=== PATIENT | male | born 1950 | race Caucasian/White ===

== ENCOUNTER 2021-01-18 20:21 | Emergency (ER) | payer MEDICARE ==
[~2021-01-18] VITALS: Ht 180.3 cm; Wt 97.5 kg
[~2021-01-18 20:21] MED LIST: COREG12.5 MG PO; COUMADIN5 MG PO; GARLIC1 EAC1 PO; LASIX40 MG PO; LOSARTAN POTASS25 MG PO; LOVENOX60 MG/0.6 SC; MACUVITE WITH1 EACH PO; MULTI-VITAMIN1 EACH PO
[2021-01-18] MEDS ORDERED: DIPHENHYDRAMINE HCL INJ 50 MG/ML VIAL IV STA (20:31)
[2021-01-18] MEDS ORDERED: METHYLPREDNISOLONE SOD SUCC 125 MG/2ML VIAL IV STA (20:31)
[2021-01-18] MEDS ORDERED: ASPIRIN 81 MG CHEW TAB PO ONE (20:45)
[2021-01-18 21:19] LABS: BASOPHILS # (AUTO) 0.1 (0.0-0.1); BASOPHILS % 0.8 % (0.0-1.0); EOSINOPHILS % 0.2 % (0.0-6.0); HEMATOCRIT 35.4 % (38.2-49.6); HEMOGLOBIN 12.1 g/dL (14.0-18.0); LYMPHOCYTES # (AUTO) 0.3 (1.0-3.2); LYMPHOCYTES % 5.3 % (18.0-39.1); MEAN CORPUSCULAR HEMOGLOBIN 33.2 pg (28-32); MEAN CORPUSCULAR HGB CONC 34.2 g/dL (31-35); MEAN CORPUSCULAR VOLUME 97.3 fL (81-99); MONOCYTES # (AUTO) 0.5 (0.2-0.8); MONOCYTES % 8.2 % (4.4-11.3); NEUTROPHILS # (AUTO) 5.2 (2.1-6.9); NEUTROPHILS % 84.7 % (38.7-80.0); PLATELET COUNT 225 x10e3/uL (140-360); RED BLOOD COUNT 3.64 x10e6/uL (4.3-5.7); RED CELL DISTRIBUTION WIDTH 14.6 % (11.7-14.4)
[2021-01-18 21:31] LABS: INR 2.94; PROTHROMBIN TIME 31.4 seconds (11.9-14.5)
[2021-01-18 21:38] LABS: ALANINE AMINOTRANSFERASE 20 IU/L (0-55); ALBUMIN 3.2 g/dL (3.5-5.0); ALBUMIN/GLOBULIN RATIO 1.2 (0.8-2.0); ALKALINE PHOSPHATASE 107 IU/L (40-150); ANION GAP 13.3 mmol/L (8-16); BLOOD UREA NITROGEN 26 mg/dL (7-26); BUN/CREATININE RATIO 25 (6-25); CALCIUM 8.1 mg/dL (8.4-10.2); CARBON DIOXIDE 24 mmol/L (22-29); CHLORIDE 94 mmol/L (98-107); CREATININE, SERUM 1.05 mg/dL (0.72-1.25); EST GLOMERULAR FILTRATION RATE > 60 ML/MIN (60-); GLUCOSE 99 mg/dL (74-118); POTASSIUM 4.3 mmol/L (3.5-5.1); SODIUM 127 mmol/L (136-145)
[2021-01-18 21:41] LABS: CREATINE KINASE MB 1.4 ng/mL (0-5.0)
[2021-01-18] MEDS ORDERED: PREDNISONE20 MG PO (22:25)
[2021-01-18] MEDS ORDERED: BUMETANIDE1 MG PO (22:25)
[2021-01-18] MEDS ORDERED: FUROSEMIDE INJ 10 MG/ML 4 ML VIAL IV ONE (22:30)
[2021-01-18 22:59] VITALS: BP 125/98
== END 2021-01-18 23:00 | disposition home or self-care (01) ==
LOC: ER 20:31
DX: L30.9 Dermatitis, unspecified (principal); R60.9 Edema, unspecified; E87.1 Hypo-osmolality and hyponatremia; I50.9 Heart failure, unspecified
CPT/HCPCS: 36415; 71045; 80053; 82550; 82553; 83880; 84484; 85025; 85610; 99283; J1200; J1940; J2930

== ENCOUNTER 2021-02-24 08:25 | Inpatient (IN) | payer MEDICARE ==
[~2021-02-24] VITALS: Ht 180.3 cm; Wt 109.8 kg
[~2021-02-24 08:25] MED LIST changes: +BUMETANIDE1 MG PO; +PREDNISONE20 MG PO
[2021-02-24 09:03] LABS: BASOPHILS # (AUTO) 0.1 (0.0-0.1); BASOPHILS % 0.4 % (0.0-1.0); EOSINOPHILS % 0.3 % (0.0-6.0); HEMATOCRIT 33.3 % (38.2-49.6); HEMOGLOBIN 11.4 g/dL (14.0-18.0); LYMPHOCYTES # (AUTO) 0.6 (1.0-3.2); MEAN CORPUSCULAR HEMOGLOBIN 33.6 pg (28-32); MEAN CORPUSCULAR HGB CONC 34.2 g/dL (31-35); MEAN CORPUSCULAR VOLUME 98.2 fL (81-99); MONOCYTES # (AUTO) 1.1 (0.2-0.8); MONOCYTES % 8.9 % (4.4-11.3); NEUTROPHILS # (AUTO) 9.9 (2.1-6.9); NEUTROPHILS % 84.1 % (38.7-80.0); PLATELET COUNT 306 x10e3/uL (140-360); RED BLOOD COUNT 3.39 x10e6/uL (4.3-5.7); RED CELL DISTRIBUTION WIDTH 13.7 % (11.7-14.4)
[2021-02-24 09:24] LABS: ALANINE AMINOTRANSFERASE 21 IU/L (0-55); ALBUMIN 2.6 g/dL (3.5-5.0); ALBUMIN/GLOBULIN RATIO 0.7 (0.8-2.0); ALKALINE PHOSPHATASE 107 IU/L (40-150); ANION GAP 14.3 mmol/L (8-16); BLOOD UREA NITROGEN 21 mg/dL (7-26); BUN/CREATININE RATIO 26 (6-25); CALCIUM 8.9 mg/dL (8.4-10.2); CARBON DIOXIDE 27 mmol/L (22-29); CHLORIDE 96 mmol/L (98-107); EST GLOMERULAR FILTRATION RATE > 60 ML/MIN (60-); GLUCOSE 105 mg/dL (74-118); POTASSIUM 4.3 mmol/L (3.5-5.1); SODIUM 133 mmol/L (136-145)
[2021-02-24] MEDS ORDERED: FUROSEMIDE INJ 10 MG/ML 4 ML VIAL IV NR (09:45)
[2021-02-24] MEDS ORDERED: CEFTRIAXONE 1 GM VIAL IV SCH (09:45)
[2021-02-24] MEDS ORDERED: AZITHROMYCIN 500MG/NS 250 ML 250 ML IV NR (10:00)
[2021-02-24] MEDS: CEFTRIAXONE 1 GM in SODIUM CHLORIDE 0.9% 50ML 50 ML IV SCH ×2 (10:13→20:56)
[2021-02-24 11:00] VITALS: BP 119/84
[2021-02-24 11:38] VITALS: BP 119/84
[2021-02-24] MEDS ORDERED: PLAQUENIL200 MG PO (11:45)
[2021-02-24] MEDS ORDERED: METOLAZONE5 MG PO (11:45)
[2021-02-24] MEDS ORDERED: POTASSIUM CHLO10 ME1 PO (11:50)
[2021-02-24] MEDS ORDERED: POTASSIUM600 MG (11:50)
[2021-02-24] MEDS ORDERED: ENOXAPARIN SOD INJ 60 MG/0.6 ML SYR SC SCH (14:00)
[2021-02-24] MEDS ORDERED: ACETAMINOPHEN 325 MG TAB PO PRN (14:00)
[2021-02-24] MEDS ORDERED: GUAIFENESIN/DEXTROMETHORPHAN LIQD 5 ML UDC NG PRN (14:00)
[2021-02-24] MEDS ORDERED: DOCUSATE SODIUM 100 MG CAP PO PRN (14:00)
[2021-02-24] MEDS ORDERED: ZOLPIDEM TARTRATE 5 MG TAB PO PRN (14:00)
[2021-02-24] MEDS ORDERED: ENOXAPARIN INJ 80 MG/0.8 ML SYR SC SCH (14:15)
[2021-02-24 15:37] LABS: INR 6.22; PROTHROMBIN TIME 55.7 seconds (11.9-14.5)
[2021-02-24 16:03] VITALS: BP 121/79
[2021-02-24] MEDS ORDERED: PHYTONADIONE 1 MG/0.5 ML AMP PO ONE (16:30)
[2021-02-24] MEDS ORDERED: WARFARIN SOD 5 MG TAB PO SCH (17:00)
[2021-02-24] MEDS: BENZONATATE 100 MG CAP PO SCH ×2 (17:02→20:56)
[2021-02-24] MEDS: CARVEDILOL 12.5 MG TAB PO SCH (17:02)
[2021-02-24] MEDS: FUROSEMIDE INJ 10 MG/ML 2 ML VIAL IV SCH (17:56)
[2021-02-24 18:30] LABS: CLARITY,URINE CLEAR (CLEAR); COLOR,URINE YELLOW (YELLOW); KETONES,URINE NEGATIVE (NEGATIVE); LEUKOCYTE ESTERASE ,URINE NEGATIVE (NEGATIVE); MUCUS,URINE FEW (RARE); NITRITE,URINE NEGATIVE (NEGATIVE); PROTEIN,URINE DIPSTICK NEGATIVE (NEGATIVE); URINE UROBILINOGEN 0.2 mg/dL (0.2 - 1); WBC,URINE (MAN) 0-5 /HPF (0-5)
[2021-02-24 21:07] VITALS: BP 102/70
[2021-02-24] MEDS ORDERED: SODIUM CHLORIDE 0.9% 250ML 250 ML ONE (21:08)
[2021-02-24 21:50] VITALS: BP 102/70
[2021-02-25] VITALS (8 sets, daily range): BP systolic 102–124; BP diastolic 73–98
[2021-02-25 04:47] LABS: BASOPHILS # (AUTO) 0.1 (0.0-0.1); BASOPHILS % 0.5 % (0.0-1.0); EOSINOPHILS # (AUTO) 0.1 (0.0-0.4); EOSINOPHILS % 0.7 % (0.0-6.0); HEMATOCRIT 32.2 % (38.2-49.6); HEMOGLOBIN 10.9 g/dL (14.0-18.0); LYMPHOCYTES # (AUTO) 0.8 (1.0-3.2); LYMPHOCYTES % 7.4 % (18.0-39.1); MEAN CORPUSCULAR HGB CONC 33.9 g/dL (31-35); MEAN CORPUSCULAR VOLUME 97.6 fL (81-99); MONOCYTES # (AUTO) 0.8 (0.2-0.8); MONOCYTES % 7.4 % (4.4-11.3); NEUTROPHILS # (AUTO) 8.8 (2.1-6.9); NEUTROPHILS % 82.5 % (38.7-80.0); PLATELET COUNT 282 x10e3/uL (140-360); RED CELL DISTRIBUTION WIDTH 13.6 % (11.7-14.4)
[2021-02-25 04:58] LABS: INR 2.42; PROTHROMBIN TIME 27.1 seconds (11.9-14.5)
[2021-02-25 05:08] LABS: ANION GAP 12.6 mmol/L (8-16); BLOOD UREA NITROGEN 24 mg/dL (7-26); BUN/CREATININE RATIO 32 (6-25); CALCIUM 8.4 mg/dL (8.4-10.2); CARBON DIOXIDE 31 mmol/L (22-29); CHLORIDE 94 mmol/L (98-107); CREATININE, SERUM 0.74 mg/dL (0.72-1.25); EST GLOMERULAR FILTRATION RATE > 60 ML/MIN (60-); GLUCOSE 110 mg/dL (74-118); POTASSIUM 3.6 mmol/L (3.5-5.1); SODIUM 134 mmol/L (136-145)
[2021-02-25] MEDS: FUROSEMIDE INJ 10 MG/ML 2 ML VIAL IV SCH ×2 (06:04→18:10)
[2021-02-25] MEDS: CEFTRIAXONE 1 GM in SODIUM CHLORIDE 0.9% 50ML 50 ML IV SCH ×2 (09:52→21:10)
[2021-02-25] MEDS: CARVEDILOL 12.5 MG TAB PO SCH ×2 (09:53→17:30)
[2021-02-25] MEDS: BENZONATATE 100 MG CAP PO SCH ×3 (09:53→21:10)
[2021-02-25] MEDS: LOSARTAN POTASSIUM 25 MG TAB PO SCH (09:53)
[2021-02-25] MEDS: HYDROXYCHLOROQUINE SULFATE 200 MG TAB PO SCH (09:53)
[2021-02-25] MEDS: POTASSIUM CHLORIDE 10MEQ EA PO SCH (09:53)
[2021-02-25] MEDS: PANTOPRAZOLE SOD 40 MG TABEC PO SCH (09:53)
[2021-02-25] MEDS ORDERED: DIGOXIN 0.25 MG TAB PO ONE (11:15)
[2021-02-25] MEDS: WARFARIN SOD 5 MG TAB PO SCH (17:30)
[2021-02-26] VITALS (8 sets, daily range): BP systolic 97–124; BP diastolic 63–82
[2021-02-26 04:47] LABS: BASOPHILS # (AUTO) 0.1 (0.0-0.1); BASOPHILS % 0.5 % (0.0-1.0); EOSINOPHILS # (AUTO) 0.1 (0.0-0.4); EOSINOPHILS % 0.7 % (0.0-6.0); HEMATOCRIT 32.2 % (38.2-49.6); HEMOGLOBIN 11.1 g/dL (14.0-18.0); LYMPHOCYTES # (AUTO) 0.7 (1.0-3.2); LYMPHOCYTES % 6.5 % (18.0-39.1); MEAN CORPUSCULAR HEMOGLOBIN 34.3 pg (28-32); MEAN CORPUSCULAR HGB CONC 34.5 g/dL (31-35); MEAN CORPUSCULAR VOLUME 99.4 fL (81-99); MONOCYTES # (AUTO) 0.9 (0.2-0.8); MONOCYTES % 7.9 % (4.4-11.3); NEUTROPHILS # (AUTO) 8.9 (2.1-6.9); NEUTROPHILS % 82.8 % (38.7-80.0); PLATELET COUNT 283 x10e3/uL (140-360); RED BLOOD COUNT 3.24 x10e6/uL (4.3-5.7); RED CELL DISTRIBUTION WIDTH 13.5 % (11.7-14.4)
[2021-02-26 05:02] LABS: INR 1.44; PROTHROMBIN TIME 18.2 seconds (11.9-14.5)
[2021-02-26 05:12] LABS: ALANINE AMINOTRANSFERASE 18 IU/L (0-55); ALBUMIN 2.3 g/dL (3.5-5.0); ALBUMIN/GLOBULIN RATIO 0.7 (0.8-2.0); ALKALINE PHOSPHATASE 99 IU/L (40-150); ANION GAP 14.6 mmol/L (8-16); BLOOD UREA NITROGEN 24 mg/dL (7-26); BUN/CREATININE RATIO 32 (6-25); CALCIUM 8.3 mg/dL (8.4-10.2); CARBON DIOXIDE 31 mmol/L (22-29); CHLORIDE 91 mmol/L (98-107); CHOL/HDL RATIO 2.5 (3.9-4.7); CHOLESTEROL 114 MD/DL (0-199); CREATININE, SERUM 0.75 mg/dL (0.72-1.25); EST GLOMERULAR FILTRATION RATE > 60 ML/MIN (60-); GLUCOSE 113 mg/dL (74-118); HDL CHOLESTEROL 45 MG/DL (40-60); LDL CHOLESTEROL 59 MG/DL (60-130); POTASSIUM 3.6 mmol/L (3.5-5.1); SODIUM 133 mmol/L (136-145); TRIGLYCERIDES 50 MG/DL (0-149)
[2021-02-26 05:36] LABS: THYROID STIMULATING HORMONE 0.742 uIU/mL (0.350-4.940)
[2021-02-26] MEDS: FUROSEMIDE INJ 10 MG/ML 2 ML VIAL IV SCH (06:05)
[2021-02-26] MEDS: POTASSIUM CHLORIDE 10MEQ EA PO SCH (09:00)
[2021-02-26] MEDS: DIGOXIN 0.125 MG TAB PO SCH (09:00)
[2021-02-26] MEDS: CARVEDILOL 12.5 MG TAB PO SCH ×2 (09:00→17:01)
[2021-02-26] MEDS: LOSARTAN POTASSIUM 25 MG TAB PO SCH (09:00)
[2021-02-26 10:02] LABS: INR 1.45; PROTHROMBIN TIME 18.3 seconds (11.9-14.5)
[2021-02-26] MEDS: BENZONATATE 100 MG CAP PO SCH ×3 (10:28→21:25)
[2021-02-26] MEDS: PANTOPRAZOLE SOD 40 MG TABEC PO SCH (10:28)
[2021-02-26] MEDS: HYDROXYCHLOROQUINE SULFATE 200 MG TAB PO SCH (10:29)
[2021-02-26] MEDS: CEFTRIAXONE 1 GM in SODIUM CHLORIDE 0.9% 50ML 50 ML IV SCH ×2 (10:30→21:25)
[2021-02-26] MEDS ORDERED: FUROSEMIDE INJ 10 MG/ML 4 ML VIAL IV ONE (11:15)
[2021-02-26] MEDS ORDERED: POTASSIUM CHLORIDE 20 MEQ TAB CR PO ONE (11:15)
[2021-02-26] MEDS: WARFARIN SOD 5 MG TAB PO SCH (17:01)
[2021-02-26] MEDS: FUROSEMIDE INJ 10 MG/ML 4 ML VIAL IV SCH (17:01)
[2021-02-27] VITALS: BP 124/86
[2021-02-27 04:00] VITALS: BP 118/79
[2021-02-27 05:04] LABS: INR 1.8; PROTHROMBIN TIME 21.6 seconds (11.9-14.5)
[2021-02-27 05:12] LABS: ALANINE AMINOTRANSFERASE 18 IU/L (0-55); ALBUMIN 2.3 g/dL (3.5-5.0); ALBUMIN/GLOBULIN RATIO 0.7 (0.8-2.0); ALKALINE PHOSPHATASE 104 IU/L (40-150); ANION GAP 13.4 mmol/L (8-16); BLOOD UREA NITROGEN 24 mg/dL (7-26); BUN/CREATININE RATIO 31 (6-25); CARBON DIOXIDE 33 mmol/L (22-29); CHLORIDE 92 mmol/L (98-107); CREATININE, SERUM 0.78 mg/dL (0.72-1.25); EST GLOMERULAR FILTRATION RATE > 60 ML/MIN (60-); GLUCOSE 115 mg/dL (74-118); POTASSIUM 3.4 mmol/L (3.5-5.1); SODIUM 135 mmol/L (136-145)
[2021-02-27] MEDS ORDERED: LASIX10 MG/ML PO (07:40)
[2021-02-27] MEDS ORDERED: KEFLEX125 MG/5 M PO (07:40)
[2021-02-27] MEDS ORDERED: TESSALON PERLE100 MG PO (07:40)
[2021-02-27] MEDS ORDERED: Warfarin Sod PO (07:40)
[2021-02-27] MEDS ORDERED: DIGOXIN125 MCG PO (07:40)
[2021-02-27 07:55] VITALS: BP 111/79
[2021-02-27] MEDS ORDERED: POTASSIUM CHLORIDE 20 MEQ TAB CR PO ONE (08:15)
[2021-02-27] MEDS: POTASSIUM CHLORIDE 10MEQ EA PO SCH (08:46)
[2021-02-27] MEDS: CEFTRIAXONE 1 GM in SODIUM CHLORIDE 0.9% 50ML 50 ML IV SCH (08:46)
[2021-02-27] MEDS: BENZONATATE 100 MG CAP PO SCH (08:46)
[2021-02-27] MEDS: PANTOPRAZOLE SOD 40 MG TABEC PO SCH (08:46)
[2021-02-27] MEDS: CARVEDILOL 12.5 MG TAB PO SCH (08:46)
[2021-02-27] MEDS: HYDROXYCHLOROQUINE SULFATE 200 MG TAB PO SCH (08:46)
[2021-02-27] MEDS: FUROSEMIDE INJ 10 MG/ML 4 ML VIAL IV SCH (08:46)
[2021-02-27 08:47] VITALS: BP 111/79
[2021-02-27] MEDS: DIGOXIN 0.125 MG TAB PO SCH (08:47)
[2021-02-27] MEDS: LOSARTAN POTASSIUM 25 MG TAB PO SCH (08:47)
[2021-02-27 10:42] LABS: INR 1.8; PROTHROMBIN TIME 21.6 seconds (11.9-14.5)
== END 2021-02-27 11:52 | disposition home or self-care (01) | DRG 291 ==
LOC: ER 09:06 → ERHOLD 09:47 → MED/SURG3 11:00 → OBSVTOIN 14:00
PROVIDERS: ADMIT Internal Medicine; ATTEND Internal Medicine
DX: I11.0 Hypertensive heart disease with heart failure (principal); J18.9 Pneumonia, unspecified organism; I48.20 Chronic atrial fibrillation, unspecified; I50.23 Acute on chronic systolic (congestive) heart failure; Z95.810 Presence of automatic (implantable) cardiac defibrillator; Z79.01 Long term (current) use of anticoagulants; E66.9 Obesity, unspecified; Z68.33 Body mass index [BMI] 33.0-33.9, adult; Z86.711 Personal history of pulmonary embolism; Z82.49 Family history of ischemic heart disease and other diseases of the circulatory system; Z20.822 Contact with and (suspected) exposure to COVID-19
CPT/HCPCS: 36415; 71045; 80048; 80053; 80061; 81001; 83036; 83605; 83880; 84443; 84484; 85025; 85610; 86850; 86900; 87040; 93005; 93306; 99251; 99284; J0456; J0696; J1940; J7050; U0002

== ENCOUNTER → 2022-02-09 | Outpatient (CLI) | payer MEDICARE ==
[~2022-02-09] MED LIST changes: +DIGOXIN125 MCG PO; +KEFLEX125 MG/5 M PO; +LASIX10 MG/ML PO; +METOLAZONE5 MG PO; +PLAQUENIL200 MG PO; +POTASSIUM CHLO10 ME1 PO; +POTASSIUM600 MG; +TESSALON PERLE100 MG PO; +Warfarin Sod PO
== END ==
LOC: RAD 12:42
PROVIDERS: ATTEND Internal Medicine
DX: S89.92XA Unspecified injury of left lower leg, initial encounter (principal); M25.462 Effusion, left knee

== ENCOUNTER → 2022-02-16 | Outpatient (CLI) | payer MEDICARE | LOC: CT 13:44 | PROVIDERS: ATTEND Internal Medicine | DX: S09.90XA Unspecified injury of head, initial encounter (principal) | CPT/HCPCS: 70450 ==

== ENCOUNTER → 2022-03-15 | Outpatient (CLI) | payer MEDICARE | LOC: US 08:00 | PROVIDERS: ATTEND Internal Medicine | DX: N28.1 Cyst of kidney, acquired (principal); N18.30 Chronic kidney disease, stage 3 unspecified | CPT/HCPCS: 76770 ==

== ENCOUNTER 2022-03-24 11:00 | Outpatient (RCR) | payer MEDICARE | END 2022-03-25 | LOC: PT 11:00 | PROVIDERS: ATTEND Specialist | DX: S80.02XA Contusion of left knee, initial encounter (principal) ==

== ENCOUNTER → 2022-04-08 | Outpatient (CLI) | payer MEDICARE | LOC: RAD 11:53 | PROVIDERS: ATTEND Internal Medicine | DX: R06.02 Shortness of breath (principal) | CPT/HCPCS: 71046 ==

== ENCOUNTER 2022-04-21 09:00 | Outpatient (RCR) | payer MEDICARE | END 2022-04-25 | LOC: PT 09:00 | PROVIDERS: ATTEND Specialist | DX: S80.02XA Contusion of left knee, initial encounter (principal) | CPT/HCPCS: 97139 ==

== ENCOUNTER 2022-05-05 08:59 | Outpatient (RCR) | payer MEDICARE | END 2022-05-26 | LOC: PT 08:59 | PROVIDERS: ATTEND Specialist | DX: S80.02XA Contusion of left knee, initial encounter (principal) ==

== ENCOUNTER → 2023-09-06 | Outpatient (REF) | payer MEDICARE ==
[~2023-09-06] MED LIST changes: +HYDROCODON-ACE1 EA11 PO; +NAPROXEN250 MG PO
== END ==
LOC: CT 15:58
PROVIDERS: ATTEND Internal Medicine
DX: S32.019A Unspecified fracture of first lumbar vertebra, initial encounter for closed fracture (principal); S22.079A Unspecified fracture of T9-T10 vertebra, initial encounter for closed fracture
CPT/HCPCS: 72128; 72131

== ENCOUNTER 2024-03-06 09:00 | Outpatient (RCR) | payer MEDICARE | END 2024-03-25 | LOC: PT 09:00 | PROVIDERS: ATTEND Anesthesiology Pain Medicine | DX: M46.1 Sacroiliitis, not elsewhere classified (principal); M47.896 Other spondylosis, lumbar region; M54.6 Pain in thoracic spine; M62.81 Muscle weakness (generalized); M53.84 Other specified dorsopathies, thoracic region ==

== ENCOUNTER → 2024-05-09 | Day surgery (SDC) | payer MEDICARE ==
[2024-05-02 11:36] LABS: BASOPHILS % 1.1 % (0.0-1.0); EOSINOPHILS # (AUTO) 0.2 (0.0-0.4); HEMATOCRIT 34.4 % (38.2-49.6); HEMOGLOBIN 11.5 g/dL (14.0-18.0); LYMPHOCYTES # (AUTO) 0.7 (1.0-3.2); LYMPHOCYTES % 17.9 % (18.0-39.1); MEAN CORPUSCULAR HEMOGLOBIN 34.6 pg (28-32); MEAN CORPUSCULAR HGB CONC 33.4 g/dL (31-35); MEAN CORPUSCULAR VOLUME 103.6 fL (81-99); MONOCYTES # (AUTO) 0.6 (0.2-0.8); MONOCYTES % 14.7 % (4.4-11.3); NEUTROPHILS # (AUTO) 2.3 (2.1-6.9); PLATELET COUNT 166 x10e3/uL (140-360); RED BLOOD COUNT 3.32 x10e6/uL (4.3-5.7); RED CELL DISTRIBUTION WIDTH 15.2 % (11.7-14.4); WHITE BLOOD COUNT 3.74 x10e3/uL (4.8-10.8)
[~2024-05-09] MED LIST changes: +ALLOPURINOL300 MG PO; +ATORVASTATIN CA20 MG PO; +DAILY-VITE TA400 MCG PO; +DUPIXENT300 MG/2 M SC; +ENOXAPARIN80 MG/0.8 SC; +EPHEDRINE SULFATE INJ 50 MG/ML VIAL ONE; +FLOMAX0.4 MG PO; +GLUCAGON FOR INJ 1 MG VIAL ONE; +LACTATED RINGER'S 1,000 ML ONE; +LASIX80 MG PO; +LIDOCAINE HCL 2% LOCAL INJ 5 ML SDV VIAL INJ ONE; +MACUHEALTH PO; +PHENYLEPHRINE HCL 1% 10 MG/ML VIAL ONE; +PROPOFOL IV EMULSION 10 MG/ML 20 ML VIAL ONE; +SODIUM CHLORI1000 MG PO; +SODIUM CHLORIDE 0.9% INJ 100 ML BAG ONE; +VIT C PO; +VIT D PO
[2024-05-09 07:52] LABS: INR 1.07; PARTIAL THROMBOPLASTIN TIME 34.3 seconds (23.8-35.5); PROTHROMBIN TIME 14.4 seconds (11.9-14.5)
[2024-05-09 10:00] VITALS: TEMP 97.1
[2024-05-09 10:20] VITALS: BP 117/72; PULSE 81; RESP 18; O2SAT 98
== END | disposition home or self-care (01) ==
LOC: OR 06:27
PROVIDERS: ATTEND Internal Medicine Gastroenterology
DX: Z12.11 Encounter for screening for malignant neoplasm of colon (principal); K63.89 Other specified diseases of intestine; D12.3 Benign neoplasm of transverse colon; D12.4 Benign neoplasm of descending colon; D12.8 Benign neoplasm of rectum; K57.30 Diverticulosis of large intestine without perforation or abscess without bleeding; K64.8 Other hemorrhoids; K74.60 Unspecified cirrhosis of liver; I48.91 Unspecified atrial fibrillation; I11.0 Hypertensive heart disease with heart failure; I50.9 Heart failure, unspecified; E78.5 Hyperlipidemia, unspecified; Z01.810 Encounter for preprocedural cardiovascular examination; Z01.812 Encounter for preprocedural laboratory examination; I35.8 Other nonrheumatic aortic valve disorders; Z79.899 Other long term (current) drug therapy; Z79.01 Long term (current) use of anticoagulants; Z95.0 Presence of cardiac pacemaker
CPT/HCPCS: 36415 ×2; 45385; 85025; 85610; 85730; 93005; J1610; J2001; J2371; J2704; J7050; J7121; 45378